=== PATIENT | female | born 1955 | race Caucasian/White ===

== ENCOUNTER 2018-06-15 13:19 | Outpatient (CLI) | payer BC | END 2018-06-15 13:20 | disposition home or self-care (01) | LOC: BICMAMMO 13:19 | PROVIDERS: ATTEND Family Medicine | DX: Z12.31 Encounter for screening mammogram for malignant neoplasm of breast (principal); N64.89 Other specified disorders of breast | CPT/HCPCS: 77063; 77067 ==

== ENCOUNTER 2018-06-27 13:56 | Outpatient (CLI) | payer BC ==
--- NOTE | 2018-06-27 15:45 | ULT ---
RIGHT BREAST ULTRASOUND: Date: 06/27/18 HISTORY: Abnormal mammogram. FINDINGS/IMPRESSION: Correlation is made with the mammogram of today and 06/15/18. Sonographic evaluation of the 11 o'clock position of the right breast demonstrates a 6.0 mm cyst nayan esponding to the finding on the mammogram. IMPRESSION: BIRADS-2, Benign findings. Return to annual mammographic screening. POS: OFF
== END 2018-06-27 13:57 | disposition home or self-care (01) ==
LOC: BICMAMMO 13:56
PROVIDERS: ATTEND Family Medicine
DX: R92.2 Inconclusive mammogram (principal)
CPT/HCPCS: G0279

== ENCOUNTER 2020-11-24 10:50 | Outpatient (CLI) | payer BC ==
[2020-11-24 17:54] LABS: SARS-CoV-2 PCR by NAA Not Detected (NotDetected)
== END 2020-11-24 10:51 | disposition home or self-care (01) ==
LOC: LABBT 10:50
PROVIDERS: ATTEND Urology
DX: Z01.812 Encounter for preprocedural laboratory examination (principal); N20.1 Calculus of ureter; Z20.822 Contact with and (suspected) exposure to COVID-19
CPT/HCPCS: 87635; U0003; U0005

== ENCOUNTER 2020-11-27 10:16 | Day surgery (SDC) | payer OTHER ==
[2020-11-26 10:56] VITALS: BMI 32.2
[2020-11-27] MEDS ORDERED: Levofloxacin 500 mg/D5W 100 ml Premix Bag ONE (11:22)
[2020-11-27] MEDS ORDERED: Midazolam HCl 2 mg/2 ml Vial ONE (12:32)
[2020-11-27] MEDS ORDERED: Fentanyl 100 MCG/2 ML VIAL ONE ×2 (13:56→17:32)
[2020-11-27] MEDS ORDERED: PHENYLEPHRINE-NS 100 MCG/ML 10 ML SYRINGE ONE (13:57)
[2020-11-27] MEDS ORDERED: Ondansetron PF 4 MG/2 ML Vial ONE (14:08)
[2020-11-27] MEDS ORDERED: PROPOFOL 200 MG/20 ML VIAL ONE (14:08)
[2020-11-27] MEDS ORDERED: ePHEDrine Sulfate 50 MG/10 ML VIAL ONE (14:08)
[2020-11-27] MEDS ORDERED: Lidocaine 1% PF 5 ML VIAL ONE (14:08)
[2020-11-27] MEDS ORDERED: Ondansetron HCl/PF 4 MG/2 ML Vial IVP PRN (14:33)
[2020-11-27] MEDS ORDERED: HYDROmorphone 2 MG/ML VIAL SLOW IVP PRN (14:33)
[2020-11-27] MEDS ORDERED: Iothalamate Meglumine 60% 50 ML VIAL FS ONE ×2 (14:42)
[2020-11-27] MEDS ORDERED: B & O ONE (15:47)
[2020-11-27] MEDS ORDERED: HYDROcodone/Acetaminophen 5/325 mg Tablet ONE (18:09)
[2020-11-27] MEDS ORDERED: Phenazopyridine HCl 100 MG TAB ONE (19:40)
== END 2020-11-27 20:25 | disposition home or self-care (01) ==
LOC: SDC 10:16
PROVIDERS: ATTEND Urology
PROC: 0TC78ZZ Extirpation of Matter from Left Ureter, Via Natural or Artificial Opening Endoscopic (ICD-10-PCS; principal; 2020-11-27)
PROC: 0T778DZ Dilation of Left Ureter with Intraluminal Device, Via Natural or Artificial Opening Endoscopic (ICD-10-PCS; principal; 2020-11-27)
DX: N20.1 Calculus of ureter (principal); N13.5 Crossing vessel and stricture of ureter without hydronephrosis; E03.9 Hypothyroidism, unspecified; G89.29 Other chronic pain; M79.7 Fibromyalgia; Z79.899 Other long term (current) drug therapy; Z88.1 Allergy status to other antibiotic agents; Z88.6 Allergy status to analgesic agent; Z88.8 Allergy status to other drugs, medicaments and biological substances
CPT/HCPCS: 74420; 82365; 88300; J1956; J2250; J2405; J2704; J3010; Q9961

== ENCOUNTER 2023-04-19 13:03 | Outpatient (CLI) | payer MEDICARE, OTHER | END 2023-04-19 13:04 | disposition home or self-care (01) | LOC: BICRAD 13:03 | PROVIDERS: ATTEND Chiropractor | DX: M54.2 Cervicalgia (principal); M47.812 Spondylosis without myelopathy or radiculopathy, cervical region | CPT/HCPCS: 72050 ==